=== PATIENT | female | born 1955 ===

== ENCOUNTER 2017-06-17 19:38 | Inpatient (IN) | payer OTHER ==
--- NOTE | 2017-06-17 21:06 | ED PDOC ---
Upper Extremity Pain/Injury Time Seen by Provider: 06/17/17 20:49 Chief Complaint (Nursing): Finger,Hand,&Wrist Chief Complaint (Provider): left hand pain and swelling History Per: Patient History/Exam Limitations: no limitations Onset/Duration Of Symptoms: Days (x1) Current Symptoms Are (Timing): Still Present Quality: "Pain" Severity: Severe Additional Complaint(s): Vicky Olson is a 62 year old female, with no significant past medical history , who presents to the emergency department complaining of left hand 3rd finger pain and swelling onset since last night. Patient reports she was trying to tie up a garbage bag and pressed down on it when she felt something pinched her hand. Patient is right hand dominant. She denies any other injuries or medical complaints. PMD: [facility] Velazquez V Past Medical History Reviewed: Historical Data, Nursing Documentation, Vital Signs Vital Signs: Last Vital Signs Temp 97.8 F 06/17/17 20:17 Pulse 85 06/17/17 20:17 Resp 16 06/17/17 20:17 BP 130/68 06/17/17 20:17 Pulse Ox 97 06/17/17 20:17 - Medical History PMH: No Chronic Diseases - Surgical History Surgical History: No Surg Hx - Family History Family History: States: No Known Family Hx - Allergies Allergies/Adverse Reactions: Allergies Allergy/AdvReac Type Severity Reaction Status Date / Time No Known Allergies Allergy Verified 06/17/17 20:19 Review of Systems ROS Statement: Except As Marked, All Systems Reviewed And Found Negative Musculoskeletal: Positive for: Hand Pain (left middle finger swelling and pain) Physical Exam - Reviewed Nursing Documentation Reviewed: Yes Vital Signs Reviewed: Yes - Physical Exam Appears: Positive for: Non-toxic Head Exam: Positive for: ATRAUMATIC, NORMAL INSPECTION, NORMOCEPHALIC Skin: Positive for: Normal Color, Warm, Dry Eye Exam: Positive for: Normal appearance Neck: Positive for: Normal, Painless ROM Cardiovascular/Chest: Positive for: Regular Rate, Rhythm. Negative for: Edema, Bradycardia, Tachycardia Respiratory: Positive for: Normal Breath Sounds. Negative for: Crackles, Rales , Rhonchi, Stridor, Wheezing, Respiratory Distress Pulses-Carotid (L): 2+ Pulses-Carotid (R): 2+ Pulses-Radial (L): 2+ Pulses-Radial (R): 2+ Extremity: Positive for: Tenderness, Swelling, Other (4/4 Kerval Signs: (1) digit held in passive flexion (2) fusiform swelling (3) exquisite tenderness to tendon sheath to palpation, and (4) inability to extend digit). Negative for: Normal ROM, Deformity Neurologic/Psych: Positive for: Alert, Oriented - Laboratory Results Result Diagrams: 06/17/17 22:21 06/17/17 22:21 - ECG O2 Sat by Pulse Oximetry: 97 (RA) Pulse Ox Interpretation: Normal Medical Decision Making Medical Decision Making: Initial Impression: Flexor tenosynovitis Initial Plan: --CMP --CBC w/ differential --Ancef 1gm Sodium Chloride 100 ml IVPB --Adacel 0.5 ml IM --Hand left 3 views routine [RAD] --Urinalysis --Reevaluation Scribe Attestation: Documented by Navin Drew acting as a scribe for Gray Ivy PA-C. MD Scribe Attestation: All medical record entries made by the Scribe were at my direction and personally dictated by me. I have reviewed the chart and agree that the record accurately reflects my personal performance of the history, physical exam, medical decision making, and the department course for this patient. I have also personally directed, reviewed, and agree with the discharge instructions and disposition. Disposition - Clinical Impression Clinical Impression: Flexor carpi radialis tenosynovitis - Patient ED Disposition Is Patient to be Admitted: Yes Discussed With : Garret Abad (Admit to medicine, NPO past midnight; ancef q8hrs; OR possible in am) Doctor Will See Patient In The: Hospital Counseled Patient/Family Regarding: Studies Performed, Diagnosis, Need For Followup - Disposition Disposition Time: 23:45 Condition: FAIR - Pt Status Changed To: Hospital Disposition Of: Observation
[2017-06-17] MEDS ORDERED: Tdap Vaccine 0.5 ml Vial (10-64 yrs) IM ONE ×2 (21:21→22:13)
[2017-06-17] MEDS ORDERED: ceFAZolin 1 GM in Sodium Chloride 0.9% 100 ML IVPB ONE (21:21)
[2017-06-17 22:27] LABS: BASO % 0.6 % (0.0-2.0); EOS # 0.2 K/uL (0.0-0.7); EOS % 2.3 % (0.0-4.0); HEMOGLOBIN 13.5 g/dL (12.0-16.0); LYMPH # 2.9 K/uL (1.0-4.3); LYMPH % 41.4 % (20.0-40.0); MEAN CELL VOLUME 91.6 fl (81.0-99.0); MEAN CORPUSCULAR HEMOGLOBIN 30.9 pg (27.0-31.0); MEAN CORPUSCULAR HGB CONC 33.8 g/dL (33.0-37.0); MEAN PLATELET VOLUME 8.6 fl (7.2-11.7); MONO # 0.7 K/uL (0.0-0.8); MONO % 10.5 % (0.0-10.0); NEUT # 3.2 K/uL (1.8-7.0); NEUT % 45.2 % (50.0-75.0); NRBC % 0.1 % (0.0-0.0); RBC 4.37 Mil/uL (3.80-5.20); RED CELL DISTRIBUTION WIDTH 12.6 % (11.5-14.5)
[2017-06-17 22:32] LABS: SQUAMOUS EPITHIAL 2 /hpf (0-5); URINE BACTERIA RARE (<OCC); URINE BILIRUBIN NEGATIVE (NEGATIVE); URINE BLOOD NEGATIVE (NEGATIVE); URINE CLARITY CLEAR (Clear); URINE COLOR STRAW (YELLOW); URINE GLUCOSE (UA) NEG (Normal); URINE LEUKOCYTE ESTERASE MOD Leu/uL (Negative); URINE PROTEIN NEGATIVE (NEGATIVE); URINE UROBILINOGEN 0.2-1.0 mg/dL (0.2-1.0)
[2017-06-17 22:41] LABS: ALB/GLOB RATIO 1.2 (1.0-2.1); ALBUMIN 4.3 g/dL (3.5-5.0); CALCIUM 9.5 mg/dL (8.4-10.2)
[2017-06-18] MEDS ORDERED: ceFAZolin 1 GM in Sodium Chloride 0.9% 100 ML IVPB ONE (05:00)
[2017-06-18] MEDS ORDERED: Pneumococcal 23-Valent Vaccine IM ONE (06:00)
[2017-06-18] MEDS ORDERED: ceFAZolin 1 GM in Sodium Chloride 0.9% 100 ML IVPB SCH (06:00)
[2017-06-18] MEDS ORDERED: Influenza Vaccine 18yr & older 0.5 ML/45 MCG SYR IM ONE (06:00)
[2017-06-18] MEDS ORDERED: ceFAZolin IV 1 gm in Dextrose 1 GM/50 ML BAG IVPB SCH (08:15)
--- NOTE | 2017-06-18 09:11 | CP.PCM.HP ---
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 She didnt pay much attention but nex day she started feeling pain, redness and swelling. Denies fever, vomiting, nausea, diarrhea, CP, SOB, abd pain. Denies weakness or numbness/tingling in UE but admits pain and decreased ROM of left hand 3rd finger due to pain. Present on Admission - Present on Admission Any Indicators Present on Admission: No Review of Systems - Review of Systems All systems: reviewed and no additional remarkable complaints except (as per HPI ) Past Patient History - Past Social History Smoking Status: Never Smoked Alcohol: None Drugs: Denies - MUSCULOSKELETAL/RHEUMATOLOGICAL Hx Falls: No - PSYCHIATRIC Hx Substance Use: No - SURGICAL HISTORY Hx Cholecystectomy: Yes Other/Comment: Ovary removal and partial kidney right - ANESTHESIA Hx Anesthesia: Yes Hx Anesthesia Reactions: No Hx Malignant Hyperthermia: No Has any member of the family had a problem w/ anesthesia?: No Meds Allergies/Adverse Reactions: Allergies Allergy/AdvReac Type Severity Reaction Status Date / Time No Known Allergies Allergy Verified 06/17/17 20:19 Physical Exam - Constitutional Appears: Non-toxic, No Acute Distress - Head Exam Head Exam: NORMAL INSPECTION - Eye Exam Eye Exam: EOMI, PERRL - ENT Exam ENT Exam: Mucous Membranes Moist - Respiratory Exam Respiratory Exam: Clear to Auscultation Bilateral, NORMAL BREATHING PATTERN. absent: Decreased Breath Sounds, Rales, Rhonchi, Wheezes, Respiratory Distress, Stridor - Cardiovascular Exam Cardiovascular Exam: REGULAR RHYTHM, +S1, +S2. absent: Gallop - GI/Abdominal Exam GI & Abdominal Exam: Normal Bowel Sounds, Soft. absent: Distended, Firm, Guarding, Rebound, Rigid, Tenderness - Extremities Exam Extremities exam: Positive for: joint swelling, normal capillary refill, tenderness, pedal pulses present. Negative for: calf tenderness, normal inspection (left hand 3rd finger + for edema, erythmea, tender on tendon sheet) Results - Vital Signs Recent Vital Signs: Last Vital Signs Temp 98.4 F 06/18/17 07:59 Pulse 74 06/18/17 07:59 Resp 20 06/18/17 07:59 BP 108/62 06/18/17 07:59 Pulse Ox 98 06/18/17 07:59 - Labs Result Diagrams: 06/17/17 22:21 06/17/17 22:21 Labs: Laboratory Results - last 24 hr 06/17/17 06/17/17 06/17/17 22:21 22:21 22:21 WBC 7.0 RBC 4.37 Hgb 13.5 Hct 40.0 MCV 91.6 MCH 30.9 MCHC 33.8 RDW 12.6 Plt Count 205 MPV 8.6 Neut % (Auto) 45.2 L Lymph % (Auto) 41.4 H [place] % (Auto) 10.5 H Eos % (Auto) 2.3 Baso % (Auto) 0.6 Neut # (Auto) 3.2 Lymph # (Auto) 2.9 [place] # (Auto) 0.7 Eos # (Auto) 0.2 Baso # (Auto) 0.0 ESR Sodium 143 Potassium 3.9 Chloride 104 Carbon Dioxide 25 Anion Gap 18 BUN 24 H Creatinine 1.2 Est GFR ( Amer) 55 Est GFR (Non-Af Amer) 46 Random Glucose 105 Calcium 9.5 Total Bilirubin 0.5 AST 33 ALT 51 Alkaline Phosphatase 66 Total Protein 8.0 Albumin 4.3 Globulin 3.7 Albumin/Globulin Ratio 1.2 Urine Color Straw Urine Clarity Clear Urine pH 7.0 Ur Specific [place] 1.013 Urine Protein Negative Urine Glucose (UA) Neg Urine Ketones Negative Urine Blood Negative Urine Nitrate Negative Urine Bilirubin Negative Urine Urobilinogen 0.2-1.0 Ur Leukocyte Esterase Mod Urine RBC (Auto) 1 Urine Microscopic WBC 7 H Ur Squamous Epith Cells 2 Urine Bacteria Rare 06/17/17 23:59 WBC RBC Hgb Hct MCV MCH MCHC RDW Plt Count MPV Neut % (Auto) Lymph % (Auto) [place] % (Auto) Eos % (Auto) Baso % (Auto) Neut # (Auto) Lymph # (Auto) [place] # (Auto) Eos # (Auto) Baso # (Auto) ESR 16 Sodium Potassium Chloride Carbon Dioxide Anion Gap BUN Creatinine Est GFR ( Amer) Est GFR (Non-Af Amer) Random Glucose Calcium Total Bilirubin AST ALT Alkaline Phosphatase Total Protein Albumin Globulin Albumin/Globulin Ratio Urine Color Urine Clarity Urine pH Ur Specific [place] Urine Protein Urine Glucose (UA) Urine Ketones Urine Blood Urine Nitrate Urine Bilirubin Urine Urobilinogen Ur Leukocyte Esterase Urine RBC (Auto) Urine Microscopic WBC Ur Squamous Epith Cells Urine Bacteria Assessment & Plan - Assessment and Plan (Free Text) Assessment: Infectious tenosynovitis left hand 3rd finger. Suspected, acute No white count, afebrile Start IV Abx Ortho consult appreciated ID consulted C/W Pain control SEAN GFR 46. NO Hx of CKD as per patient Poss due to dehydration/infection? IV 500 ml NS bolus F/U repeat BMP AM
[2017-06-18] MEDS ORDERED: Sodium Chloride 0.9% 500 ML IV ONE (09:13)
--- NOTE | 2017-06-18 09:17 | RAD ---
PROCEDURE: Left Hand Radiographs. HISTORY: flexor tenosyn COMPARISON: None. FINDINGS: BONES: Normal. No fracture. JOINTS: Normal. No osteoarthritic changes. SOFT TISSUES: Normal. OTHER FINDINGS: None. IMPRESSION: Normal left hand radiographs.
--- NOTE | 2017-06-18 09:52 | CP.PCM.PN ---
Subjective - Date & Time of Evaluation Date of Evaluation: 06/18/17 Time of Evaluation: 09:50 - Subjective Subjective: Hand eval per Dr. Abad Patient seen and examined by Dr. Abad this am 62F RHD complains of left middle finger pain and swelling since yesterday. She says she was pushing garbage down at work and felt something stick her in the hand. Pain worsened and she came to the ER. Objective - Vital Signs/Intake and Output Vital Signs (last 24 hours): Temp Pulse Resp BP Pulse Ox 98.4 F 74 20 108/62 98 06/18/17 07:59 06/18/17 07:59 06/18/17 07:59 06/18/17 07:59 06/18/17 07:59 - Medications Medications: Current Medications Ciprofloxacin (Cipro 400mg/200ml Dsw) 400 mg in 200 mls @ 200 mls/hr IVPB Q12 MONICA PRN Reason: Protocol Vancomycin HCl 1 gm/ Sodium (Chloride) 250 mls @ 166.667 mls/hr IVPB Q12 MONICA PRN Reason: Protocol Sodium Chloride (Sodium Chloride 0.9%) 500 mls @ 500 mls/hr IV .Q1H ONE Stop: 06/18/17 10:12 Morphine Sulfate (Morphine) 1 mg IVP Q4 PRN PRN Reason: Pain, severe (8-10) - Labs Labs: 06/17/17 22:21 06/17/17 22:21 - Extremities Exam Additional comments: Left hand: noted 4mm laceration volar aspect of long finger at MCP crease. dry. Swelling and redness noted around this area and to hand and finger as well, mild. Pain with active flexion of finger, which is limited. pain with extension of finger but past full extension. No palpation collection or area of fluctuance. Assessment and Plan (1) Flexor tenosynovitis of finger Assessment & Plan: Patient seen and examined by Dr. Abad this am states no surgical intervention at this time, close monitoring to see if patient improves today after antibiotics ID consult as per Dr. Abad elevation pain medication prn d/w Dr. Abad, as above Status: Acute (2) Cellulitis of finger of left hand Status: Acute Radiology Interpretation - Radiology Interpretation #2 Interpretation: atient Name / ID : RICHARDSON GERALDO / [id number] Exam Date : 06/17/2017 21:22:07 ( Approved ) Study Comment : Sex / Age : F / [id number] Creator : Yaw Howe MD Dictator : Yaw Howe MD Librarian Assistant : Software Engineering Project Manager : Yaw Howe MD Approver2 : Report Date : 06/18/2017 09:16:17 My Comment : PROCEDURE: Left Hand Radiographs. HISTORY: flexor tenosyn COMPARISON: None. FINDINGS: BONES: Normal. No fracture. JOINTS: Normal. No osteoarthritic changes. SOFT TISSUES: Normal. OTHER FINDINGS: None. IMPRESSION: Normal left hand radiographs.
[2017-06-18] MEDS: Ciprofloxacin 400mg/200ml D5W 400 MG/200 ML BAG IVPB SCH ×2 (10:07→22:04)
[2017-06-18] MEDS: Saccharomyces Boulardi 250 mg Cap PO SCH (17:51)
--- NOTE | 2017-06-18 19:01 | CP.PCM.CON ---
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 She didnt pay much attention but nexT day she started feeling pain, redness and swelling. Denies fever, vomiting, nausea, diarrhea, CP, SOB, abd pain. Denies weakness or numbness/tingling in UE but admits pain and decreased ROM of left hand 3rd finger due to pain. Review of Systems - Review of Systems All systems: reviewed and no additional remarkable complaints except - Constitutional Constitutional: As Per HPI - EENT Eyes: absent: As Per HPI, Blind Spots, Blurred Vision, Change in Vision, Decreased Night Vision, Diplopia, Discharge, Dry Eye, Exophthalmos, Floaters, Irritation, Itchy Eyes, Loss of Peripheral Vision, Pain, Photophobia, Requires Corrective Lenses, Sees Flashes, Spots in Vision, Tunnel Vision, Other Visual Disturbances, Loss of Vision, Other Ears: absent: As Per HPI, Decreased Hearing, Ear Discharge, Ear Pain, Tinnitus, Abnormal Hearing, Disequilibrium, Dizziness, Other Nose/Mouth/Throat: absent: As Per HPI, Epistaxis, Nasal Congestion, Nasal Discharge, Nasal Obstruction, Nasal Trauma, Nose Pain, Post Nasal Drip, Sinus Pain, Sinus Pressure, Bleeding Gums, Change in Voice, Dental Pain, Dry Mouth, Dysphagia, Halitosis, Hoarsness, Lip Swelling, Mouth Lesions, Mouth Pain, Odynophagia, Sore Throat, Throat Swelling, Tongue Swelling, Facial Pain, Neck Pain, Neck Mass, Other - Breasts Breasts: absent: As Per HPI, Change in Shape, Mass, Pain, Nipple Discharge, Nipple Inversion, Skin Changes, Swelling, Other - Cardiovascular Cardiovascular: absent: As Per HPI, Acrocyanosis, Chest Pain, Chest Pain at Rest , Chest Pain with Activity, Claudication, Diaphoresis, Dyspnea, Dyspnea on Exertion, Edema, Irregular Heart Rhythm, Pain Radiating to Arm/Neck/Jaw, Leg Edema, Leg Ulcers, Lightheadedness, Orthopnea, Palpitations, Paroxysmal Nocturnal Dyspnea, Pedal Edema, Radiating Pain, Rapid Heart Rate, Slow Heart Rate, Syncope, Other - Respiratory Respiratory: absent: As Per HPI, Cough, Dyspnea, Hemoptysis, Dyspnea on Exertion , Wheezing, Snoring, Stridor, Pain on Inspiration, Chest Congestion, Excessive Mucous Production, Change in Mucous Color, Pain with Coughing, Other - Gastrointestinal Gastrointestinal: absent: As Per HPI, Abdominal Pain, Belching, Bloating, Change in Bowel Habits, Change in Stool Character, Coffee Ground Emesis, Constipation, Cramping, Diarrhea, Dyspepsia, Dysphagia, Early Satiety, Excessive Flatus, Fecal Incontinence, Heartburn, Hematemesis, Hematochezia, Loose Stools, Melena, Nausea, Odynophagia, Temesmus, Vomiting, Other - Genitourinary Genitourinary: absent: As Per HPI, Change in Urinary Stream, Difficulty Urinating, Dysuria, Flank Pain, Hematuria, Pyuria, Nocturia, Urinary Incontinence, Urinary Frequency, Urinary Hesitance, Urinary Urgency, Voiding Freq/Small Amts, Freq UTI, Hx Renal/Bladder Calculi, Hx /Renal Surgery, Bladder Distension, Other - Reproductive: Female Reproductive:Female: absent: As Per HPI, Amenorrhea, Amenorrhea/ Control, Currently Menstual, Cycle <21 Days, Cycle >35 Days, Cycle Variable, Menses 1-7 Days, Menses >/= 8 Days, Menses Variable, Cycle > 4 Weeks Between, No Menses for 6 Months, Heavy Menses, Light Menses, Normal Menses, Spotting Between Cycles , S/P Hysterectomy, Menopausal, Post Menopausal, Premenarche, Abnormal Vaginal Bleeding, Dysmenorrhea, Dyspareunia, Genital Lesions, Genital Pruritis, Pelvic Pain, Prolapse Symptoms, Sexual Dysfunction, Vaginal Discharge, Vaginal Dryness , Vaginal Odor, Vaginal Pruritis, Other - Menstruation Menstruation: absent: As Per HPI, Amenorrhea, Amenorrhea/ Control, Currently Menstual, Cycle <21 Days, Cycle >35 Days, Cycle Variable, Menses 1-7 Days, Menses >/= 8 Days, Menses Variable, Cycle > 4 Weeks Between, No Menses for 6 Months, Heavy Menses, Light Menses, Normal Menses, Spotting Between Cycles , S/P Hysterectomy, Menopausal, Post Menopausal, Premenarche, Abnormal Vaginal Bleeding, Dysmenorrhea, Other - Musculoskeletal Musculoskeletal: As Per HPI - Integumentary Integumentary: As Per HPI - Neurological Neurological: absent: As Per HPI, Abnormal Gait, Abnormal Hearing, Abnormal Movements, Abnormal Speech, Behavioral Changes, Burning Sensations, Confusion, Convulsions, Disequilibrium, Dizziness, Numbness, Focal Weakness, Frequent Falls , Headaches, Lack of Coordination, Loss of Vision, Memory Loss, Paresthesias, Radicular Pain, Restless Legs, Sensory Deficit, Syncope, Tingling, Tremor, Vertigo, Weakness, Other Visual Disturbances, Other - Psychiatric Psychiatric: absent: As Per HPI, Abnormal Sleep Pattern, Anhedonia, Anxiety, Auditory Hallucinations, Behavioral Changes, Change in Appetite, Change in Libido, Confusion, Depression, Difficulty Concentrating, Hallucinations, Homicidal Ideation, Hopelessness, Irritability, Memory Loss, Mood Swings, Panic Attacks, Paranoia, Suicidal Ideation, Visual Hallucinations, Tactile Hallucinations, Other - Endocrine Endocrine: absent: As Per HPI, Change in Body Appearance, Change in Libido, Cold Intolorance, Deepening of Voice, Excessive Sweating, Fatigue, Flushing, Heat Intolorance, Increase in Ring/Shoe/Hat Size, Palpitations, Polydipsia, Polyphagia, Polyuria, Other - Hematologic/Lymphatic Hematologic: absent: As Per HPI, Easy Bleeding, Easy Bruising, Lymphadenopathy, Other Past Patient History - Past Social History Smoking Status: Never Smoked Alcohol: None Drugs: Denies - MUSCULOSKELETAL/RHEUMATOLOGICAL Hx Falls: No - PSYCHIATRIC Hx Substance Use: No - SURGICAL HISTORY Hx Cholecystectomy: Yes Other/Comment: Ovary removal and partial kidney right - ANESTHESIA Hx Anesthesia: Yes Hx Anesthesia Reactions: No Hx Malignant Hyperthermia: No Has any member of the family had a problem w/ anesthesia?: No Meds Allergies/Adverse Reactions: Allergies Allergy/AdvReac Type Severity Reaction Status Date / Time No Known Allergies Allergy Verified 06/17/17 20:19 - Medications Medications: Current Medications Acetaminophen (Tylenol 325mg Tab) 650 mg PO Q6 PRN PRN Reason: Pain, Mild (1-3) Last Admin: 06/18/17 11:00 Dose: 650 mg Ciprofloxacin (Cipro 400mg/200ml Dsw) 400 mg in 200 mls @ 200 mls/hr IVPB Q12 MONICA PRN Reason: Protocol Last Admin: 06/18/17 10:07 Dose: 200 mls/hr Vancomycin HCl 1 gm/ Sodium (Chloride) 250 mls @ 166.667 mls/hr IVPB Q12 MONICA PRN Reason: Protocol Last Admin: 06/18/17 12:27 Dose: 166.667 mls/hr Morphine Sulfate (Morphine) 1 mg IVP Q4 PRN PRN Reason: Pain, severe (8-10) Saccharomyces Boulardii (Florastor) 250 mg PO BID [facility] Last Admin: 06/18/17 17:51 Dose: 250 mg Physical Exam - Constitutional Appears: Non-toxic, Chronically Ill - Head Exam Head Exam: NORMOCEPHALIC - Eye Exam Eye Exam: PERRL. absent: Scleral icterus - ENT Exam ENT Exam: Mucous Membranes Dry, Normal External Ear Exam - Neck Exam Neck exam: Negative for: Lymphadenopathy - Respiratory Exam Respiratory Exam: Decreased Breath Sounds - Cardiovascular Exam Cardiovascular Exam: REGULAR RHYTHM - GI/Abdominal Exam GI & Abdominal Exam: Diminished Bowel Sounds, Soft - Rectal Exam Rectal Exam: Deferred - Exam Exam: NORMAL INSPECTION - Extremities Exam Extremities exam: Positive for: pedal pulses present. Negative for: calf tenderness, normal inspection, pedal edema, tenderness Additional comments: SWELLING BASE OF 3RD DIGIT LEFT HAND VOLAR SURFACE - Back Exam Back exam: absent: CVA tenderness (L), CVA tenderness (R) - Neurological Exam Neurological exam: Alert, CN II-XII Intact, Oriented x3, Reflexes Normal - Psychiatric Exam Psychiatric exam: Normal Mood - Skin Skin Exam: Dry Results - Vital Signs Recent Vital Signs: Last Vital Signs Temp 97.8 F 06/18/17 15:58 Pulse 71 06/18/17 15:58 Resp 18 06/18/17 15:58 BP 106/59 L 06/18/17 15:58 Pulse Ox 98 06/18/17 15:58 - Labs Result Diagrams: 06/17/17 22:21 06/17/17 22:21 Labs: Laboratory Results - last 24 hr 06/17/17 06/17/17 06/17/17 22:21 22:21 22:21 WBC 7.0 RBC 4.37 Hgb 13.5 Hct 40.0 MCV 91.6 MCH 30.9 MCHC 33.8 RDW 12.6 Plt Count 205 MPV 8.6 Neut % (Auto) 45.2 L Lymph % (Auto) 41.4 H [place] % (Auto) 10.5 H Eos % (Auto) 2.3 Baso % (Auto) 0.6 Neut # (Auto) 3.2 Lymph # (Auto) 2.9 [place] # (Auto) 0.7 Eos # (Auto) 0.2 Baso # (Auto) 0.0 ESR Sodium 143 Potassium 3.9 Chloride 104 Carbon Dioxide 25 Anion Gap 18 BUN 24 H Creatinine 1.2 Est GFR ( Amer) 55 Est GFR (Non-Af Amer) 46 Random Glucose 105 Hemoglobin A1c Calcium 9.5 Total Bilirubin 0.5 AST 33 ALT 51 Alkaline Phosphatase 66 C-Reactive Protein Total Protein 8.0 Albumin 4.3 Globulin 3.7 Albumin/Globulin Ratio 1.2 Urine Color Straw Urine Clarity Clear Urine pH 7.0 Ur Specific [place] 1.013 Urine Protein Negative Urine Glucose (UA) Neg Urine Ketones Negative Urine Blood Negative Urine Nitrate Negative Urine Bilirubin Negative Urine Urobilinogen 0.2-1.0 Ur Leukocyte Esterase Mod Urine RBC (Auto) 1 Urine Microscopic WBC 7 H Ur Squamous Epith Cells 2 Urine Bacteria Rare 06/17/17 06/17/17 06/18/17 23:59 23:59 09:37 WBC RBC Hgb Hct MCV MCH MCHC RDW Plt Count MPV Neut % (Auto) Lymph % (Auto) [place] % (Auto) Eos % (Auto) Baso % (Auto) Neut # (Auto) Lymph # (Auto) [place] # (Auto) Eos # (Auto) Baso # (Auto) ESR 16 Sodium Potassium Chloride Carbon Dioxide Anion Gap BUN Creatinine Est GFR ( Amer) Est GFR (Non-Af Amer) Random Glucose Hemoglobin A1c 6.0 Calcium Total Bilirubin AST ALT Alkaline Phosphatase C-Reactive Protein 20.60 H Total Protein Albumin Globulin Albumin/Globulin Ratio Urine Color Urine Clarity Urine pH Ur Specific [place] Urine Protein Urine Glucose (UA) Urine Ketones Urine Blood Urine Nitrate Urine Bilirubin Urine Urobilinogen Ur Leukocyte Esterase Urine RBC (Auto) Urine Microscopic WBC Ur Squamous Epith Cells Urine Bacteria Assessment & Plan (1) Cellulitis of finger of left hand Status: Acute (2) Flexor carpi radialis tenosynovitis Status: Acute (3) Flexor tenosynovitis of finger Status: Acute - Assessment and Plan (Free Text) Assessment: CONT IV ANTIBIOTICS AND WOUND CARE POSSIBLE I AND D IF SWELLING PERSISTS CONSIDER MRI HAND RECC TETANUS TOXOID
[2017-06-18] MEDS ORDERED: Morphine 4 MG/ML VIAL IVP PRN (22:00)
[2017-06-18] MEDS: Sodium Chloride 0.9% 1,000 ML IV SCH (22:05)
[2017-06-19] MEDS: Sodium Chloride 0.9% 1,000 ML IV SCH ×2 (03:07→12:05)
[2017-06-19 06:48] LABS: BASO % 0.6 % (0.0-2.0); EOS # 0.2 K/uL (0.0-0.7); EOS % 3.5 % (0.0-4.0); HEMOGLOBIN 12.1 g/dL (12.0-16.0); LYMPH # 1.5 K/uL (1.0-4.3); LYMPH % 33.9 % (20.0-40.0); MEAN CELL VOLUME 91.7 fl (81.0-99.0); MEAN CORPUSCULAR HEMOGLOBIN 31.5 pg (27.0-31.0); MEAN CORPUSCULAR HGB CONC 34.3 g/dL (33.0-37.0); MEAN PLATELET VOLUME 8.4 fl (7.2-11.7); MONO # 0.6 K/uL (0.0-0.8); MONO % 12.5 % (0.0-10.0); NEUT # 2.2 K/uL (1.8-7.0); NEUT % 49.5 % (50.0-75.0); NRBC % 0.2 % (0.0-0.0); RBC 3.84 Mil/uL (3.80-5.20); RED CELL DISTRIBUTION WIDTH 12.5 % (11.5-14.5); WHITE BLOOD COUNT 4.5 K/uL (4.8-10.8)
[2017-06-19 06:49] LABS: BLOOD UREA NITROGEN 18 mg/dl (7-17); CALCIUM 8.2 mg/dL (8.4-10.2); GFR AFRICAN-AMERICAN > 60; GFR NON-AFRICAN AMERICAN > 60
--- NOTE | 2017-06-19 07:31 | CP.PCM.PN ---
Subjective - Date & Time of Evaluation Date of Evaluation: 06/19/17 Time of Evaluation: 06:00 - Subjective Subjective: Patient states pain is much better today. She can move her finger with less pain and can bend it a lot more today. No new complaints. Objective - Vital Signs/Intake and Output Vital Signs (last 24 hours): Temp Pulse Resp BP Pulse Ox 98.2 F 58 L 18 91/52 L 97 06/18/17 23:47 06/18/17 23:47 06/18/17 23:47 06/18/17 23:47 06/18/17 23:47 - Medications Medications: Current Medications Acetaminophen (Tylenol 325mg Tab) 650 mg PO Q6 PRN PRN Reason: Pain, Mild (1-3) Last Admin: 06/18/17 11:00 Dose: 650 mg Ciprofloxacin (Cipro 400mg/200ml Dsw) 400 mg in 200 mls @ 200 mls/hr IVPB Q12 MONICA PRN Reason: Protocol Last Admin: 06/18/17 22:04 Dose: 200 mls/hr Sodium Chloride (Sodium Chloride 0.9%) 1,000 mls @ 100 mls/hr IV .Q10H COUNT INCLUDES THE [facility] Stop: 06/19/17 21:38 Last Admin: 06/19/17 03:07 Dose: Not Given Vancomycin HCl 1 gm/ Sodium (Chloride) 250 mls @ 166.667 mls/hr IVPB Q12@0000, 1200 MONICA PRN Reason: Protocol Last Admin: 06/19/17 00:51 Dose: 166.667 mls/hr Morphine Sulfate (Morphine) 1 mg IVP Q4 PRN PRN Reason: Pain, severe (8-10) Saccharomyces Boulardii (Florastor) 250 mg PO BID COUNT INCLUDES THE [facility] Last Admin: 06/18/17 17:51 Dose: 250 mg - Labs Labs: 06/19/17 05:40 06/19/17 05:40 - Extremities Exam Additional comments: Left hand: moving middle finger much more today, almost full flexion. flume tender on volar hand and at laceration site, but less today. Dry, no drainage. No collection palpable. Sensation intact, +cap refill < 2 seconds Assessment and Plan (1) Flexor tenosynovitis of finger Assessment & Plan: Significantly improved overnight continue antibiotics as per Dr. Lee no orthopedic intervention indicated, improving with antibiotics d/w DR. Abad, agrees with above, f/u in office in 5-7 days call for appt Status: Acute (2) Cellulitis of finger of left hand Status: Acute
[2017-06-19] MEDS: Ciprofloxacin 400mg/200ml D5W 400 MG/200 ML BAG IVPB SCH ×2 (08:53→21:12)
[2017-06-19] MEDS: Saccharomyces Boulardi 250 mg Cap PO SCH ×2 (08:54→16:26)
--- NOTE | 2017-06-19 13:09 | CP.PCM.PN ---
Subjective - Date & Time of Evaluation Date of Evaluation: 06/19/17 Time of Evaluation: 07:10 - Subjective Subjective: Evaluated with Dr Champion during morning rounds Stable, pain and swelling to left 3rd finger improved. Headache resolved. Afebrile. No acute distress, no events overnight. Denies vomiting, nausea, CP, SOB or palptiations Objective - Vital Signs/Intake and Output Vital Signs (last 24 hours): Temp Pulse Resp BP Pulse Ox 97.4 F L 58 L 20 114/66 99 06/19/17 08:09 06/18/17 23:47 06/19/17 08:09 06/19/17 08:09 06/19/17 08:09 - Medications Medications: Current Medications Acetaminophen (Tylenol 325mg Tab) 650 mg PO Q6 PRN PRN Reason: Pain, Mild (1-3) Last Admin: 06/18/17 11:00 Dose: 650 mg Ciprofloxacin (Cipro 400mg/200ml Dsw) 400 mg in 200 mls @ 200 mls/hr IVPB Q12 [facility] PRN Reason: Protocol Last Admin: 06/19/17 08:53 Dose: 200 mls/hr Sodium Chloride (Sodium Chloride 0.9%) 1,000 mls @ 100 mls/hr IV .Q10H [facility] Stop: 06/19/17 21:38 Last Admin: 06/19/17 12:05 Dose: Not Given Vancomycin HCl 1 gm/ Sodium (Chloride) 250 mls @ 166.667 mls/hr IVPB Q12@0000, 1200 [facility] PRN Reason: Protocol Last Admin: 06/19/17 12:05 Dose: 166.667 mls/hr Morphine Sulfate (Morphine) 1 mg IVP Q4 PRN PRN Reason: Pain, severe (8-10) Saccharomyces Boulardii (Florastor) 250 mg PO BID [facility] Last Admin: 06/19/17 08:54 Dose: 250 mg - Labs Labs: 06/19/17 05:40 06/19/17 05:40 - Constitutional Appears: Non-toxic, No Acute Distress - Eye Exam Eye Exam: EOMI, PERRL - ENT Exam ENT Exam: Mucous Membranes Moist - Respiratory Exam Respiratory Exam: Clear to Ausculation Bilateral, NORMAL BREATHING PATTERN. absent: Rales, Rhonchi, Wheezes - Cardiovascular Exam Cardiovascular Exam: REGULAR RHYTHM, +S1, +S2. absent: Gallop, Murmur - GI/Abdominal Exam GI & Abdominal Exam: Soft, Normal Bowel Sounds. absent: Distended, Guarding, Rigid, Tenderness - Extremities Exam Extremities Exam: Normal Capillary Refill, Tenderness (and limited ROM L/3rd finger). absent: Calf Tenderness - Neurological Exam Neurological Exam: Alert, Awake, Oriented x3 - Skin Skin Exam: Warm Assessment and Plan - Assessment and Plan (Free Text) Assessment: Infectious tenosynovitis C/W IV abx Stable. Afebrile ID consult appreciated. Recs MRI of hand Pain control Ortho consult appreciated: No Sx intervention at this time
--- NOTE | 2017-06-19 14:24 | CP.PCM.PN ---
Subjective - Date & Time of Evaluation Date of Evaluation: 06/19/17 Time of Evaluation: 07:00 - Subjective Subjective: c/o tenderness hand with decreased rom no abscess remains afebrile responding to rx Objective - Vital Signs/Intake and Output Vital Signs (last 24 hours): Temp Pulse Resp BP Pulse Ox 97.4 F L 58 L 20 114/66 99 06/19/17 08:09 06/18/17 23:47 06/19/17 08:09 06/19/17 08:09 06/19/17 08:09 - Medications Medications: Current Medications Acetaminophen (Tylenol 325mg Tab) 650 mg PO Q6 PRN PRN Reason: Pain, Mild (1-3) Last Admin: 06/18/17 11:00 Dose: 650 mg Ciprofloxacin (Cipro 400mg/200ml Dsw) 400 mg in 200 mls @ 200 mls/hr IVPB Q12 [facility] PRN Reason: Protocol Last Admin: 06/19/17 08:53 Dose: 200 mls/hr Sodium Chloride (Sodium Chloride 0.9%) 1,000 mls @ 100 mls/hr IV .Q10H [facility] Stop: 06/19/17 21:38 Last Admin: 06/19/17 12:05 Dose: Not Given Vancomycin HCl 1 gm/ Sodium (Chloride) 250 mls @ 166.667 mls/hr IVPB Q12@0000, 1200 [facility] PRN Reason: Protocol Last Admin: 06/19/17 12:05 Dose: 166.667 mls/hr Morphine Sulfate (Morphine) 1 mg IVP Q4 PRN PRN Reason: Pain, severe (8-10) Saccharomyces Boulardii (Florastor) 250 mg PO BID [facility] Last Admin: 06/19/17 08:54 Dose: 250 mg - Labs Labs: 06/19/17 05:40 06/19/17 05:40 - Constitutional Appears: Non-toxic, Chronically Ill - Head Exam Head Exam: NORMOCEPHALIC - Eye Exam Eye Exam: PERRL. absent: Scleral icterus - ENT Exam ENT Exam: Mucous Membranes Dry - Neck Exam Neck Exam: absent: Lymphadenopathy - Respiratory Exam Respiratory Exam: Decreased Breath Sounds - Cardiovascular Exam Cardiovascular Exam: REGULAR RHYTHM - GI/Abdominal Exam GI & Abdominal Exam: Distended, Soft - Rectal Exam Rectal Exam: Deferred - Exam Exam: NORMAL INSPECTION - Extremities Exam Extremities Exam: absent: Pedal Edema - Back Exam Back Exam: absent: CVA tenderness (L), CVA tenderness (R) - Neurological Exam Neurological Exam: Alert, Awake, Normal Gait, Oriented x3 Neuro motor strength exam: Left Upper Extremity: 5, Right Upper Extremity: 5, Left Lower Extremity: 5, Right Lower Extremity: 5 - Psychiatric Exam Psychiatric exam: Normal Mood - Skin Skin Exam: Dry Assessment and Plan (1) Cellulitis of finger of left hand Status: Acute (2) Flexor carpi radialis tenosynovitis Status: Acute (3) Flexor tenosynovitis of finger Status: Acute - Assessment and Plan (Free Text) Assessment: cont iv then po rx mri hand
[2017-06-20] MEDS: Ciprofloxacin 400mg/200ml D5W 400 MG/200 ML BAG IVPB SCH ×2 (08:48→21:16)
[2017-06-20] MEDS: Saccharomyces Boulardi 250 mg Cap PO SCH ×2 (08:49→16:47)
--- NOTE | 2017-06-20 08:52 | PN ---
DATE: 06/20/2017 SUBJECTIVE: The patient is seen and examined. Interim events noted. Consults noted and appreciated. Infectious disease and orthopedic followup and intervention noted and appreciated. The patient remains in regular medical floor on IV antibiotics. The patient feels okay. Pain much improved. Movement also improved further 100% normal. No other complaints. No chest pain or shortness of breath. No . PHYSICAL EXAMINATION: GENERAL: The patient is in no acute distress. VITAL SIGNS: Stable. HEART: S1 and S2, normal and regular. LUNGS: Good bilateral air exchange. ABDOMEN: Soft and nontender. EXTREMITIES: Cellulitis of the hands is improving remarkably. Movement is also improved a lot. No redness. No edema. No calf swelling. No tenderness. No acute ischemia. CENTRAL NERVOUS SYSTEM: Essentially unchanged. DIAGNOSTIC DATA: Available diagnostic data reviewed. MRI is done, results are pending. Overall, the patient's general medical condition is stable and improving. PLAN: Plan as ordered. Param Champion MD
--- NOTE | 2017-06-20 11:58 | CP.PCM.PN ---
Subjective - Date & Time of Evaluation Date of Evaluation: 06/20/17 Time of Evaluation: 08:00 - Subjective Subjective: less pain less swelling less tenderness able to flex hand Objective - Vital Signs/Intake and Output Vital Signs (last 24 hours): Temp Pulse Resp BP Pulse Ox 97.9 F 79 18 104/64 97 06/20/17 07:51 06/20/17 07:51 06/20/17 07:51 06/20/17 07:51 06/20/17 07:51 - Medications Medications: Current Medications Acetaminophen (Tylenol 325mg Tab) 650 mg PO Q6 PRN PRN Reason: Pain, Mild (1-3) Last Admin: 06/18/17 11:00 Dose: 650 mg Ciprofloxacin (Cipro 400mg/200ml Dsw) 400 mg in 200 mls @ 200 mls/hr IVPB Q12 [facility] PRN Reason: Protocol Last Admin: 06/20/17 08:48 Dose: 200 mls/hr Vancomycin HCl 1 gm/ Sodium (Chloride) 250 mls @ 166.667 mls/hr IVPB Q12@0000, 1200 [facility] PRN Reason: Protocol Last Admin: 06/20/17 11:09 Dose: 166.667 mls/hr Morphine Sulfate (Morphine) 1 mg IVP Q4 PRN PRN Reason: Pain, severe (8-10) Saccharomyces Boulardii (Florastor) 250 mg PO BID [facility] Last Admin: 06/20/17 08:49 Dose: 250 mg - Labs Labs: 06/19/17 05:40 06/19/17 05:40 - Constitutional Appears: Non-toxic, Chronically Ill - Head Exam Head Exam: NORMOCEPHALIC - Eye Exam Eye Exam: PERRL. absent: Scleral icterus - ENT Exam ENT Exam: Mucous Membranes Dry - Neck Exam Neck Exam: absent: Lymphadenopathy - Respiratory Exam Respiratory Exam: Decreased Breath Sounds, Clear to Ausculation Bilateral - Cardiovascular Exam Cardiovascular Exam: REGULAR RHYTHM - GI/Abdominal Exam GI & Abdominal Exam: Distended, Soft - Rectal Exam Rectal Exam: Deferred - Exam Exam: NORMAL INSPECTION - Extremities Exam Extremities Exam: absent: Pedal Edema Additional comments: hand less swolllen no pus expressed - Neurological Exam Neurological Exam: Alert, Awake, CN II-XII Intact, Normal Gait, Oriented x3 Neuro motor strength exam: Left Upper Extremity: 5, Right Upper Extremity: 5, Left Lower Extremity: 5, Right Lower Extremity: 5 - Psychiatric Exam Psychiatric exam: Normal Mood - Skin Skin Exam: Dry Assessment and Plan (1) Cellulitis of finger of left hand Status: Acute (2) Flexor carpi radialis tenosynovitis Status: Acute (3) Flexor tenosynovitis of finger Status: Acute - Assessment and Plan (Free Text) Assessment: MRI Pending ok to d/c on PO rx clinda 300 tid x 5 days with follow up by Dr Champion
[2017-06-21] MEDS: Saccharomyces Boulardi 250 mg Cap PO SCH ×2 (08:31→16:43)
[2017-06-21] MEDS: Ciprofloxacin 400mg/200ml D5W 400 MG/200 ML BAG IVPB SCH (08:31)
--- NOTE | 2017-06-21 11:21 | PN ---
DATE: 06/21/2017 SUBJECTIVE: The patient is seen and examined. Interim events noted. Consults noted and appreciated. Infectious Diseases followup and intervention noted and appreciated. The patient remains in regular medical floor on IV antibiotics. Tolerating current medications without any side effect. The patient's hand pain also improved remarkably __0.25___ on the left at PIP joints and back of the hand, swelling also reduced and movement improved a lot. PHYSICAL EXAMINATION: GENERAL: The patient is in no acute distress. VITAL SIGNS: Stable. HEART: S1 and S2, normal and regular. LUNGS: Good bilateral air entry. ABDOMEN: Soft and nontender. EXTREMITIES: Cellulitis improved remarkably. The ulcer almost healed. No sign of distal neurovascular compromise. CENTRAL NERVOUS SYSTEM: Exam is essentially unchanged. DIAGNOSTIC DATA: Available diagnostic data reviewed. ASSESSMENT AND PLAN: Overall, the patient's general medical condition is improved. MRI report is still pending. Plan as ordered. Param Champion MD
[2017-06-22 07:03] LABS: HEMOGLOBIN 13.5 g/dL (12.0-16.0); MEAN CELL VOLUME 91.5 fl (81.0-99.0); MEAN CORPUSCULAR HEMOGLOBIN 30.7 pg (27.0-31.0); MEAN CORPUSCULAR HGB CONC 33.5 g/dL (33.0-37.0); RBC 4.41 Mil/uL (3.80-5.20); RED CELL DISTRIBUTION WIDTH 12.4 % (11.5-14.5); WHITE BLOOD COUNT 4.7 K/uL (4.8-10.8)
[2017-06-22 07:07] LABS: ALB/GLOB RATIO 1.1 (1.0-2.1); ALBUMIN 3.8 g/dL (3.5-5.0); ALT/SGPT 43 U/L (9-52); AST/SGOT 29 U/L (14-36); BLOOD UREA NITROGEN 19 mg/dl (7-17); CALCIUM 9.1 mg/dL (8.4-10.2); GFR AFRICAN-AMERICAN > 60; GFR NON-AFRICAN AMERICAN > 60
[2017-06-22 08:01] VITALS: BP 113/74; PULSE 62; RESP 19; TEMP 98; O2SAT 98
[2017-06-22] MEDS: Saccharomyces Boulardi 250 mg Cap PO SCH (09:03)
--- NOTE | 2017-06-22 09:41 | CP.PCM.PN ---
Subjective - Date & Time of Evaluation Date of Evaluation: 06/22/17 Time of Evaluation: 09:40 - Subjective Subjective: Patient states her finger is feeling much better. She has minimal pain and tenderness now. No new complaints. Review of Systems - Review of Systems All systems: reviewed and no additional remarkable complaints except - Constitutional Additional comments: no fever chills - Cardiovascular Cardiovascular: UNREMARKABLE - Respiratory Respiratory: UNREMARKABLE - Gastrointestinal Gastrointestinal: UNREMARKABLE - Musculoskeletal Musculoskeletal: As Par HPI - Integumentary Integumentary: As Per HPI, UNREMARKABLE - Neurological Neurological: UNREMARKABLE - Hematologic/Lymphatic Hematologic: UNREMARKABLE Objective - Vital Signs/Intake and Output Vital Signs (last 24 hours): Temp Pulse Resp BP Pulse Ox 98.0 F 62 19 113/74 98 06/22/17 08:00 06/22/17 08:00 06/22/17 08:00 06/22/17 08:00 06/22/17 08:00 - Medications Medications: Current Medications Acetaminophen (Tylenol 325mg Tab) 650 mg PO Q6 PRN PRN Reason: Pain, Mild (1-3) Last Admin: 06/20/17 18:55 Dose: 650 mg Morphine Sulfate (Morphine) 1 mg IVP Q4 PRN PRN Reason: Pain, severe (8-10) Saccharomyces Boulardii (Florastor) 250 mg PO BID [facility] Last Admin: 06/22/17 09:03 Dose: 250 mg - Labs Labs: 06/22/17 05:30 06/22/17 05:30 - Constitutional Appears: Well, No Acute Distress - Head Exam Head Exam: ATRAUMATIC - Neck Exam Neck Exam: Full ROM, Normal Inspection - Respiratory Exam Respiratory Exam: NORMAL BREATHING PATTERN - Cardiovascular Exam Additional comments: +radial pulse - Extremities Exam Additional comments: no erythema, minimal tenderness to proximal phalanx volarly only. No palpable collection. No tenderness proximally, resolved patient with almost full ROM of long finger. Encouraged LESLI and AAROM of finger to regain full motion. Sensatio intact, good cap refill. - Neurological Exam Neurological Exam: Alert, Awake, Oriented x3 Neuro motor strength exam: Left Upper Extremity: 5 - Psychiatric Exam Psychiatric exam: Normal Affect, Normal Mood - Skin Skin Exam: Dry, Normal Color, Warm Additional comments: laceration dry, healing well Assessment and Plan (1) Flexor tenosynovitis of finger Assessment & Plan: improving on antibiotics ID consult appreciated, plan d/c home on PO return to ER for any worsening of symptoms f/u this week DR. Abad, call for appointment Status: Acute (2) Cellulitis of finger of left hand Status: Acute
--- NOTE | 2017-06-22 12:30 | CP.PCM.PN ---
Subjective - Date & Time of Evaluation Date of Evaluation: 06/22/17 Time of Evaluation: 09:00 - Subjective Subjective: improving for d/c home follow up with ortho Objective - Vital Signs/Intake and Output Vital Signs (last 24 hours): Temp Pulse Resp BP Pulse Ox 98.0 F 62 19 113/74 98 06/22/17 08:00 06/22/17 08:00 06/22/17 08:00 06/22/17 08:00 06/22/17 08:00 - Labs Labs: 06/22/17 05:30 06/22/17 05:30 - Constitutional Appears: Non-toxic - Head Exam Head Exam: NORMOCEPHALIC - ENT Exam ENT Exam: Mucous Membranes Dry - Neck Exam Neck Exam: absent: Lymphadenopathy - Respiratory Exam Respiratory Exam: Decreased Breath Sounds - Cardiovascular Exam Cardiovascular Exam: REGULAR RHYTHM - GI/Abdominal Exam GI & Abdominal Exam: Distended, Soft - Rectal Exam Rectal Exam: Deferred - Exam Exam: NORMAL INSPECTION Assessment and Plan (1) Cellulitis of finger of left hand Status: Acute (2) Flexor carpi radialis tenosynovitis Status: Acute (3) Flexor tenosynovitis of finger Status: Acute
--- NOTE | 2017-06-22 14:56 | MRI ---
MRI left hand 3rd digit History: Tenosynovitis. Comparison: X-ray dated 06/17/2017 Technique: Multi-echo multiplanar sequences were performed through the left hand 3rd digit without the use of intravenous contrast. Findings: Fluid surrounding the flexor digitorum tendon at the level of the 3rd digit suggestive for a moderate tenosynovitis. This may represent the sequela of acute infectious and or inflammatory changes. Clinical Correlation. Mild soft tissue swelling of the 3rd digit and dorsum of the hand. There may be some trace extension to the 3rd extensor tendon sheath dorsally at the level of the mid 3rd metatarsal bone. This may represent a focal tenosynovitis at that level. Clinical correlation. Small cysts noted within the 5th metacarpal head and head of the 2nd proximal phalanx. Somewhat limited study given partial failure of fat saturation on the coronal proton density weighted sequences. Impression: 1. Fluid surrounding the flexor digitorum tendon at the level of the 3rd digit suggestive for a moderate tenosynovitis. This may represent the sequela of acute infectious and or inflammatory changes. Clinical Correlation. 2. Mild soft tissue swelling of the 3rd digit and dorsum of the hand. There may be some trace extension to the 3rd extensor tendon sheath dorsally at the level of the mid 3rd metatarsal bone. This may represent a focal tenosynovitis at that level. Clinical correlation. 3. Small cysts noted within the 5th metacarpal head and head of the 2nd proximal phalanx. 4. Somewhat limited study given partial failure of fat saturation on the coronal proton density weighted sequences. These findings were preliminarily reported at 9:11 p.m. on 06/19/[address] Benja Ibrahim from [facility].
--- NOTE | 2017-06-22 15:43 | PN ---
DATE: 06/22/2017 SUBJECTIVE: The patient is seen and examined. Interim events noted. Consults noted and appreciated. Infectious Disease interventions noted and appreciated. MRI report is pending. The patient feels much better and movements are back to normal. Pain, swelling and redness improved . PHYSICAL EXAMINATION: GENERAL: The patient is in no acute distress. VITAL SIGNS: Stable. CARDIOPULMONARY: Heart exam S1 and S2, normal and regular. LUNGS: Good bilateral air exchange. ABDOMEN: Soft and nontender. EXTREMITIES: The patient's hand is almost back to normal. Small scab covered ulcer remains swelling, redness, tenderness. Restriction of movements are all resolved. No sign of distal neurovascular compromise. No edema. No calf swelling and no tenderness. CENTRAL NERVOUS SYSTEM: Exam is essentially unchanged. DIAGNOSTIC DATA: Available diagnostic data reviewed. ASSESSMENT AND PLAN: Overall, the patient's general medical condition is clinically stable and improved. Magnetic resonance imaging results still though is pending. Plan as ordered. Param Champion MD
== END 2017-06-22 12:03 | disposition home or self-care (01) | DRG 558 ==
LOC: H.ER 19:38 → H.ERHOLD 22:20 → H.MEDSURG1 06-18 00:09 → OBSVTOIN 06-18 20:56
PROVIDERS: ADMIT Internal Medicine; ATTEND Internal Medicine
PROC: 3E0234Z Introduction of Serum, Toxoid and Vaccine into Muscle, Percutaneous Approach (ICD-10-PCS; principal; 2017-06-18)
DX: M65.142 Other infective (teno)synovitis, left hand (principal); N17.9 Acute kidney failure, unspecified; M65.18 Other infective (teno)synovitis, other site; L03.012 Cellulitis of left finger; Z90.49 Acquired absence of other specified parts of digestive tract; R51 Headache; E86.0 Dehydration; Z23 Encounter for immunization